=== PATIENT | female | born 1980 | race Caucasian/White ===

== ENCOUNTER 2021-01-11 15:55 | Emergency (ER) | payer MEDICAID, OTHER ==
[~2021-01-11] VITALS: Ht 162.6 cm; Wt 55.0 kg
[~2021-01-11 15:55] MED LIST: ALBU17AE26
[2021-01-11] MEDS ORDERED: DOXYCYCLINE HYCLATE 100MG CAPSULE PO ONE (16:30)
[2021-01-11] MEDS ORDERED: CEFTRIAXONE SODIUM 250 MG/VIAL IM ONE (16:30)
[2021-01-11 16:32] LABS: CLARITY URINE CLOUDY (CLEAR); COLOR URINE YELLOW (YELLOW); KETONES URINE NEGATIVE (NEGATIVE); LEUKOCYTE ESTERASE URINE 2+ (NEGATIVE); NITRITE URINE POSITIVE (NEGATIVE); OCCULT BLOOD URINE 3+ (NEGATIVE); PROTEIN URINE 2+ (NEGATIVE); SPECIFIC GRAVITY URINE 1.027 (1.005-1.030)
[2021-01-11] MEDS ORDERED: NITR-87 MT (16:37)
[2021-01-11] MEDS ORDERED: DOXY100C42 MT (16:37)
[2021-01-11 17:02] VITALS: BP 104/64
[2021-01-14 04:07] LABS: NEISSERIA GONORRHOEAE NAA Positive (Negative)
== END 2021-01-11 17:03 | disposition home or self-care (01) ==
LOC: ER 16:11
DX: N39.0 Urinary tract infection, site not specified (principal); F15.10 Other stimulant abuse, uncomplicated; Z20.2 Contact with and (suspected) exposure to infections with a predominantly sexual mode of transmission
CPT/HCPCS: 81003; 81025; 87210; 87491; 87591; 96372; 99284; J0696; Z7610; 99283